=== PATIENT | female | born 1965 | race Caucasian/White ===

== ENCOUNTER → 2020-03-02 | Outpatient (CLI) | payer OTHER ==
[2020-03-02 11:10] LABS: Basophils # (A) 0.1 k/uL (0-0.2); Basophils % (A) 1 %; Eosinophils # (A) 0.4 k/uL (0-0.7); Eosinophils % (A) 5 %; HCT 49.4 % (34.0-46.0); HGB 15.8 gm/dL (11.4-16.0); Lymphocytes # (A) 1.3 k/uL (1.0-4.8); Lymphocytes % (A) 18 %; MCH 29.6 pg (25.0-35.0); MCHC 32.1 g/dL (31.0-37.0); MCV 92.2 fL (80.0-100.0); Mean Platelet Volume 8.8; Monocytes # (A) 0.3 k/uL (0-1.0); Monocytes % (A) 4 %; Neutrophils # (A) 5.2 k/uL (1.3-7.7); Neutrophils % (A) 70 %; Platelet Count 237 k/uL (150-450); RBC 5.36 m/uL (3.80-5.40); RDW 13.1 % (11.5-15.5); WBC 7.4 k/uL (3.8-10.6)
[2020-03-02 12:37] LABS: Total Eosinophil Count 370 #EOS/uL (150-300)
== END | disposition home or self-care (01) ==
LOC: LABWHC1 09:32
PROVIDERS: ATTEND Internal Medicine
DX: J30.2 Other seasonal allergic rhinitis (principal); J45.20 Mild intermittent asthma, uncomplicated; T78.49XA Other allergy, initial encounter
CPT/HCPCS: 36415; 82785; 85008; 85025

== ENCOUNTER 2020-05-02 10:01 | Observation (INO) | payer OTHER ==
[2020-05-02] MEDS ORDERED: SODIUM CHLORIDE 0.9% 1,000 ML IV STA (10:24)
[2020-05-02] MEDS ORDERED: ASPIRIN 81 MG PO STA (10:24)
[2020-05-02] MEDS ORDERED: NITROGLYCERIN SL TABS 0.4 MG TAB SUBLINGUAL STA (10:24)
--- NOTE | 2020-05-02 10:27 | ED ---
Chest Pain HPI - General Chief Complaint: Chest Pain Stated Complaint: Chest pain Time Seen by Provider: 05/02/20 10:10 Source: patient, RN notes reviewed Mode of arrival: wheelchair Limitations: no limitations - History of Present Illness Initial Comments: This is a 54-year-old female with a benign history other than obesity for which she states she last saw 15 pounds recently who presents with complaints of 2 episodes of chest pain. She states she had one episode with pain is been a 78/10 severity radiated into her back when away after an hour she had a second episode benign has some tingling in her right hand. Nothing seems to make it worse nothing seems to make it better currently she has 2/10 pain in severity. She describes it as a pressure or gas-type pain. He has no personal history of heart disease no known particular family history possibly heart disease in her dad's side also history hypertension. The patient herself is a nonsmoker. No history of any abdominal surgeries or any abdominal pathologies. MD Complaint: chest pain - Related Data Home Medications Medication Instructions Recorded Confirmed LORazepam [Ativan] 0.5 mg PO HS PRN 05/02/20 05/02/20 Multivitamins, Thera [Multivitamin 1 tab PO DAILY 05/02/20 05/02/20 (formulary)] [place]-3 Fatty Acids [[place]-3] 1,000 mg PO DAILY 05/02/20 05/02/20 Allergies Allergy/AdvReac Type Severity Reaction Status Date / Time fluticasone furoate Allergy Swelling Verified 05/02/20 10:41 [From Trelegy Ellipta] montelukast [From Singulair] Allergy Unknown Verified 05/02/20 10:41 umeclidinium Allergy Swelling Verified 05/02/20 10:41 [From Trelegy Ellipta] vilanterol Allergy Swelling Verified 05/02/20 10:41 [From Trelegy Ellipta] Review of Systems ROS Statement: Those systems with pertinent positive or pertinent negative responses have been documented in the HPI. ROS Other: All systems not noted in ROS Statement are negative. Past Medical History Past Medical History: Asthma History of Any Multi-Drug Resistant Organisms: None Reported Past Surgical History: Section, Cholecystectomy Past Psychological History: No Psychological Hx Reported Past Alcohol Use History: None Reported Past Drug Use History: None Reported General Exam - General Exam Comments Initial Comments: Physical well-developed well-nourished awake alert oriented 3 female Limitations: no limitations General appearance: alert, anxious Head exam: Present: atraumatic, normocephalic, normal inspection Eye exam: Present: normal appearance, PERRL, EOMI. Absent: scleral icterus, conjunctival injection, periorbital swelling ENT exam: Present: normal exam, mucous membranes moist Neck exam: Present: normal inspection. Absent: tenderness, meningismus, lymphadenopathy Respiratory exam: Present: normal lung sounds bilaterally. Absent: respiratory distress, wheezes, rales, rhonchi, stridor Cardiovascular Exam: Present: regular rate, normal rhythm, normal heart sounds. Absent: systolic murmur, diastolic murmur, rubs, gallop, clicks GI/Abdominal exam: Present: soft, normal bowel sounds. Absent: distended, tenderness, guarding, rebound, rigid Extremities exam: Present: normal inspection, full ROM, normal capillary refill. Absent: tenderness, pedal edema, joint swelling, calf tenderness Back exam: Present: normal inspection Neurological exam: Present: alert, oriented X3, CN II-XII intact Psychiatric exam: Present: normal affect, normal mood Skin exam: Present: warm, dry, intact, normal color. Absent: rash Course Vital Signs 05/02/20 05/02/20 05/02/20 10:05 10:40 11:10 Temperature 98.2 F Pulse Rate 96 85 97 Respiratory 18 10 L 26 H Rate Blood Pressure 161/84 134/87 138/82 O2 Sat by Pulse 93 L 95 91 L Oximetry Chest Pain MDM - MDM Review the imaging and report no acute findings. The patient is currently pain- free at this time the presentation is consistent however with chest pain related to cardiac etiology after discussed with her she'll be admitted with cardiology consultation the case was discussed with Dr. Bowen. Disposition Clinical Impression: Chest pain Disposition: ADMITTED IP TO THIS HOSP Condition: Fair Referrals: Merlin Patterson MD [Primary Care Provider] - 1-2 days
[2020-05-02 10:43] LABS: Basophils # (A) 0.1 k/uL (0-0.2); Basophils % (A) 1 %; Eosinophils # (A) 0.4 k/uL (0-0.7); Eosinophils % (A) 4 %; HCT 48.9 % (34.0-46.0); HGB 16.4 gm/dL (11.4-16.0); Lymphocytes # (A) 1.5 k/uL (1.0-4.8); Lymphocytes % (A) 16 %; MCH 30.7 pg (25.0-35.0); MCHC 33.7 g/dL (31.0-37.0); MCV 91.2 fL (80.0-100.0); Mean Platelet Volume 9.2; Monocytes # (A) 0.4 k/uL (0-1.0); Monocytes % (A) 4 %; Neutrophils # (A) 6.6 k/uL (1.3-7.7); Neutrophils % (A) 73 %; Platelet Count 221 k/uL (150-450); RBC 5.36 m/uL (3.80-5.40); RDW 12.8 % (11.5-15.5)
[2020-05-02 10:52] LABS: ALT 32 U/L (4-34); AST 31 U/L (14-36); African American GFR (CKD) >90 (>60 ml/min/1.73 sqM); Albumin 4.5 g/dL (3.5-5.0); Alkaline Phosphatase 77 U/L (38-126); Anion Gap 9 mmol/L; Blood Urea Nitrogen 12 mg/dL (7-17); Calcium 9.7 mg/dL (8.4-10.2); Carbon Dioxide 21 mmol/L (22-30); Chloride 110 mmol/L (98-107); Creatine Kinase 75 U/L (30-135); Glucose 126 mg/dL (74-99); Magnesium 2.3 mg/dL (1.6-2.3); Non-African American GFR(CKD) 82 (>60 ml/min/1.73 sqM); Potassium 4.5 mmol/L (3.5-5.1); Sodium 140 mmol/L (137-145); Total Protein 7.2 g/dL (6.3-8.2)
--- NOTE | 2020-05-02 10:53 | XR ---
EXAMINATION TYPE: XR chest 2V DATE OF EXAM: 05/02/2020 COMPARISON: None INDICATION: Chest pain TECHNIQUE: Frontal and lateral views of the chest are obtained. FINDINGS: The heart size is normal. The pulmonary vasculature is normal. The lungs are clear. IMPRESSION: 1. No acute pulmonary process.
[2020-05-02 11:11] LABS: INR 0.9 (<1.2)
[2020-05-02 11:12] LABS: D-Dimer 0.22 mg/L FEU (<0.60); Partial Thromboplastin Time 21.3 sec (22.0-30.0); Prothrombin Time 9.5 sec (9.0-12.0)
[2020-05-02] MEDS ORDERED: NITROGLYCERIN SL TABS 0.4 MG TAB SUBLINGUAL PRN (12:58)
[2020-05-02] MEDS ORDERED: SODIUM CHLORIDE 0.9% 1,000 ML IV SCH (13:00)
[2020-05-02] MEDS ORDERED: LORazepam 0.5 MG TAB PO PRN (13:02)
--- NOTE | 2020-05-03 01:03 | P.HPIM ---
History of Present Illness H&P Date: 05/02/20 Chief Complaint: Chest Pain Patient is a 54-year-old female with known history of asthma, anxiety and morbid obesity BMI 42.1 came to ER with the complaints of 2 episodes of chest pain. Second episode was on Thursday and radiating to the back and subsided. Today morning around 9:30 AM patient developed chest pain mainly left retrosternal region and radiating to the back. 8 x 10 in severity. Patient felt numbness and tingling sensation in the fingers. No associated nausea. No shortness of breath. Patient has been having dull pain since then. Patient denied any history of smoking. No family history of premature heart disease. No history of hypertension. Patient does have prior history of cholecystectomy. Patient was recently started on gluten-free diet. Laboratory data showed WBC 9.0, hemoglobin 16.4 and platelets 221 D-dimer is 0.22 Sodium 140, potassium 4.5, bicarb is 21 BUN 12 and creatinine 0.81 AST ALT alk phos within normal limits. Troponin x2- proBNP is 32 Lipase level is 106 Chest x-ray showed no acute pulmonary process. EKG showed normal sinus rhythm Review of Systems Constitutional: Patient denies any fever or chills . No generalized weakness or weight loss. Abdomen: Patient denied nausea vomiting and diarrhea and abdominal pain. Cardiovascular: Patient does have chest pain with no associated short of breath no palpitations. Respiratory: patient denied any cough is from production. No shortness of breath Neurologic: Patient denied any numbness or tingling headache. Musculoskeletal: Patient denies any complaints of joint swelling or deformity. Skin: Negative Psychiatric: Negative Endocrine: No heat or cold intolerance. No recent weight gain. Genitourinary: No dysuria or hematuria. All other 14 point ROS negative except the above Past Medical History Past Medical History: Asthma History of Any Multi-Drug Resistant Organisms: None Reported Past Surgical History: Section, Cholecystectomy Smoking Status: Never smoker Medications and Allergies Home Medications Medication Instructions Recorded Confirmed Type LORazepam [Ativan] 0.5 mg PO HS PRN 05/02/20 05/02/20 History Multivitamins, Thera [Multivitamin 1 tab PO DAILY 05/02/20 05/02/20 History (formulary)] [place]-3 Fatty Acids [[place]-3] 1,000 mg PO DAILY 05/02/20 05/02/20 History Allergies Allergy/AdvReac Type Severity Reaction Status Date / Time fluticasone furoate Allergy Swelling Verified 05/02/20 10:41 [From Trelegy Ellipta] montelukast [From Singulair] Allergy Unknown Verified 05/02/20 10:41 umeclidinium Allergy Swelling Verified 05/02/20 10:41 [From Trelegy Ellipta] vilanterol Allergy Swelling Verified 05/02/20 10:41 [From Trelegy Ellipta] Physical Exam Vitals: Vital Signs Temp Pulse Pulse Resp BP BP Pulse Ox 05/02/20 14:48 98.2 F 77 16 132/89 91 L 05/02/20 12:55 75 18 136/80 96 05/02/20 12:45 72 126/89 95 05/02/20 11:10 97 26 H 138/82 91 L 05/02/20 10:40 85 10 L 134/87 95 05/02/20 10:05 98.2 F 96 18 161/84 93 L Intake and Output 05/02/20 05/02/20 05/02/20 06:59 14:59 22:59 Other: Weight 104.326 kg PHYSICAL EXAMINATION: Patient is lying in the bed comfortably, no acute distress, awake alert and oriented.. HEENT: Normocephalic. Neck is supple. Pupils reactive. Nostrils clear. Oral cavity is moist. Ears reveal no drainage. Neck reveals no JVD, carotid bruits, or thyromegaly. CHEST EXAMINATION: Trachea is central. Symmetrical expansion. Lung martini clear to auscultation and percussion. CARDIAC: Normal S1, S2 with no gallops. No murmurs ABDOMEN: Soft. Bowel sounds normal. No organomegaly. No abdominal bruits. Extremities: reveal no edema. No clubbing or cyanosis Neurologically awake, alert, oriented x3 with well-coordinated movements. No focal deficits noted Skin: No rash or skin lesions. Psychiatric: Coperative. Nonsuicidal Musculoskeletal: No joint swelling or deformity. Normal range of motion. Results CBC & Chem 7: 05/02/20 10:34 05/02/20 10:34 Labs: Abnormal Lab Results - Last 24 Hours (Table) 05/02/20 05/02/20 05/02/20 Range/Units 10:34 10:34 10:34 Hgb 16.4 H (11.4-16.0) gm/dL Hct 48.9 H (34.0-46.0) % APTT 21.3 L (22.0-30.0) sec Chloride 110 H (98-107) mmol/L Carbon Dioxide 21 L (22-30) mmol/L Glucose 126 H (74-99) mg/dL Thrombosis Risk Factor Assmnt - DVT/VTE Prophylaxis DVT/VTE Prophylaxis: Pharmacologic Prophylaxis ordered - Choose All That Apply Each Factor Represents 1 point: Age 41-60 years Thrombosis Risk Factor Assessment Total Risk Factor Score: 1 Thrombosis Risk Factor Assessment Level: Low Risk Assessment and Plan Assessment: Atypical chest pain rule out ACS. Anxiety and stress History of asthma currently not in exacerbation Recent initiation of gluten-free diet Morbid obesity with BMI 42.1 DVT prophylaxis with heparin subcu Plan: Patient will be continued on telemetry monitoring. Initial EKG and troponin x2- . Continue with aspirin. Cardiology was consulted for evaluation. Continue to follow closely.
[2020-05-03 01:29] LABS: Cholesterol 203 mg/dL (<200); HDL Cholesterol 40 mg/dL (40-60); LDL Cholesterol,Calculated 137 mg/dL (0-99); Triglycerides 132 mg/dL (<150)
[2020-05-03 07:45] VITALS: RESP 18; TEMP 98
[2020-05-03] MEDS ORDERED: NON FORMULARY DRUG (Omega-3 Fatty Acids [Omega-3] 1,000 MG) PO SCH (09:00)
[2020-05-03] MEDS ORDERED: ASPIRIN 325 MG TAB PO SCH (09:00)
[2020-05-03] MEDS ORDERED: MULTIVITAMINS, THERA 1 EACH TAB PO SCH (09:00)
[2020-05-03] MEDS ORDERED: amLODIPine 5 MG TAB PO SCH (09:00)
--- NOTE | 2020-05-03 11:00 | ECHOF ---
Referral Reason: MEASUREMENTS -------- HEIGHT: 157.5 cm WEIGHT: 104.3 kg BP: IVSd: 1.2 cm (0.6 - 1.1) LVIDd: 4.1 cm (3.9 - 5.3) LVPWd: 1.2 cm (0.6 - 1.1) IVSs: 1.5 cm LVIDs: 3.1 cm LVPWs: 1.5 cm Ao Diam: 3.7 cm (2.0 - 3.7) AV Cusp: 1.9 cm (1.5 - 2.6) LA Diam: 2.7 cm (2.7 - 3.8) MV EXCURSION: 12.495 mm (> 18.000) MV EF SLOPE: 97 mm/s (70 - 150) EPSS: 1.8 cm MV E David: 0.74 m/s MV DecT: 144 ms MV A David: 0.67 m/s MV E/A Ratio: 1.10 RAP: 5.00 mmHg RVSP: 12.32 mmHg FINDINGS -------- Sinus rhythm. This was a technically difficult study with suboptimal views. The left ventricular size is normal. There is mild concentric left ventricular hypertrophy. Overa ll left ventricular systolic function is normal with, an EF between 55 - 60 %. The right ventricle is normal in size. The left atrial size is normal. The right atrial size is normal. xx ml of Lumason was utilized for enhancement of images. Unable to visualize atrial septum. The aortic valve is trileaflet and appears structurally normal. The mitral valve is normal. There is trace mitral regurgitation. The tricuspid valve appears structurally normal. Trace tricuspid regurgitation present. Right james tricular systolic pressure is normal at < 35 mmHg. There is no pulmonic regurgitation present. The aortic root size is normal. IVC Not well visulized. There is no pericardial effusion. CONCLUSIONS -------- 1. There is mild concentric left ventricular hypertrophy. 2. Overall left ventricular systolic function is normal with, an EF between 55 - 60 %. 3. There is trace mitral regurgitation. 4. Trace tricuspid regurgitation present. 5. The aortic root size is normal. [employer]ELTY: Magalie Mark RD
--- NOTE | 2020-05-03 11:01 | P.CRDCN ---
History of Present Illness History of present illness: HISTORY OF PRESENTING ILLNESS This is a pleasant 54-year-old female past medical history significant for asthma and obesity. She denies prior history of coronary artery disease and does not follow regularly with a inventory control assistant for any reason. We have been asked to see in consultation for chest pain. She states for the previous few weeks she has been experiencing pain in the mid-sternal region described as a burning sensation and tightness. At times there is radiation to the right hand described as a tingling sensation. She states she hasn't really been using her inhaler whe n this happens because she isn't sure if she needs it. She also has been under significant stress lately and takes ativan for this. The pain was more intense on Thursday prompting her to come in for evaluation. She continues to have constant pain in the mid sternal region and today feels an odd sensation in her throat. DIAGNOSTICS EKG reveals sinus mechanism with nonspecific abnormalities and early repolarization. Chest xray negative for an acute cardiopulmonary process. Laboratory reviewed, WBC 9.0, hemoglobin 16.4, platelets 221, d-dimer 0.22, sodium 140, potassium 4.5, creatinine 0.81, magnesium 1.0, cardiac enzymes negative 3, and she proBNP 32, LDL 137 and HDL 40. She takes no daily cardiac medications. REVIEW OF SYSTEMS At the time of my exam: CONSTITUTIONAL: Denies fever or chills. CARDIOVASCULAR: Complains of chest pain. Denies shortness of breath, orthopnea, PND or palpitations. RESPIRATORY: Denies cough. GASTROINTESTINAL: Denies abdominal pain, diarrhea, constipation, nausea or vomiting. MUSCULOSKELETAL: Denies myalgias. NEUROLOGIC: Denies numbness, tingling or weakness. ENDOCRINE: Denies fatigue, weight change, polydipsia or polyurina. GENITOURINARY: Denies burning, hematuria or urgency with micturation. HEMATOLOGIC: Denies history of anemia or bleeding. PHYSICAL EXAMINATION Blood pressure 161/91 heart rate 74 afebrile and maintaining oxygen saturation on room air. CONSTITUTIONAL: No apparent distress. Obese. HEENT: Head is normocephalic. Pupils are equal, round. Sclerae anicteric. Mucous membranes of the mouth are moist. No JVD. No carotid bruit. CHEST EXAMINATION: Lungs are clear to auscultation. No chest wall tenderness is noted on palpation or with deep breathing. HEART EXAMINATION: Regular rate and rhythm. S1, S2 heard. No murmurs, gallops or rub. ABDOMEN: Soft, nontender. Positive bowel sounds. EXTREMITIES: 2+ peripheral pulses, no lower extremity edema and no calf tenderness. NEUROLOGIC EXAMINATION: Patient is awake, alert and oriented x3. ASSESSMENT Chest pain, atypical for angina. An acute coronary event has been ruled out. Hypertension Dyslipidemia Asthma Morbid obesity, BMI 42 PLAN Pain is atypical for angina. However, given her risk factor profile we will proceed with stress echocardiogram to assess for stress induced ischemia. Obtain 2D echocardiogram and doppler study to assess cardiac structure and function. Give amloidpine 5 mg before stress testing for elevated blood pressure. This may also be a stress reaction as she states her blood pressures are typically normal when she sees her dr. Recommend lifestyle modifications for weight loss and lowering of LDL cholesterol to less than 100. If stress test is normal, suggest further GI evaluation and daily PPI. Thank you kindly for this consultation. Nurse Practitioner note has been reviewed, I agree with a documented findings and plan of care. Patient was seen and examined. Past Medical History Past Medical History: Asthma History of Any Multi-Drug Resistant Organisms: None Reported Past Surgical History: Section, Cholecystectomy Smoking Status: Never smoker Medications and Allergies Home Medications Medication Instructions Recorded Confirmed Type LORazepam [Ativan] 0.5 mg PO HS PRN 05/02/20 05/02/20 History Multivitamins, Thera [Multivitamin 1 tab PO DAILY 05/02/20 05/02/20 History (formulary)] [place]-3 Fatty Acids [[place]-3] 1,000 mg PO DAILY 05/02/20 05/02/20 History Allergies Allergy/AdvReac Type Severity Reaction Status Date / Time fluticasone furoate Allergy Swelling Verified 05/02/20 10:41 [From Trelegy Ellipta] montelukast [From Singulair] Allergy Unknown Verified 05/02/20 10:41 umeclidinium Allergy Swelling Verified 05/02/20 10:41 [From Trelegy Ellipta] vilanterol Allergy Swelling Verified 05/02/20 10:41 [From Trelegy Ellipta] Physical Exam Vitals: Vital Signs Temp Pulse Pulse Resp BP BP Pulse Ox 05/03/20 08:03 74 18 05/03/20 07:40 98 F 74 18 161/91 97 05/03/20 03:00 97.8 F 82 16 145/82 95 05/02/20 21:00 97.9 F 72 16 154/94 100 05/02/20 14:48 98.2 F 77 16 132/89 91 L 05/02/20 12:55 75 18 136/80 96 05/02/20 12:45 72 126/89 95 05/02/20 11:10 97 26 H 138/82 91 L Intake and Output 05/02/20 05/03/20 05/03/20 22:59 06:59 14:59 Intake Total 450 0 0 Balance 450 0 0 Intake: Oral 450 0 0 Other: Voiding Method Toilet Toilet Toilet # Voids 1 2 Results 05/02/20 10:34 05/02/20 10:34 Cardiac Enzymes 05/02/20 05/02/20 05/02/20 Range/Units 10:34 10:34 13:37 AST 31 (14-36) U/L Troponin I <0.012 <0.012 (0.000-0.034) ng/mL 05/02/20 Range/Units 16:26 AST (14-36) U/L Troponin I <0.012 (0.000-0.034) ng/mL Coagulation 05/02/20 Range/Units 10:34 PT 9.5 (9.0-12.0) sec APTT 21.3 L (22.0-30.0) sec Lipids 05/02/20 Range/Units 10:34 Triglycerides 132 (<150) mg/dL Cholesterol 203 H (<200) mg/dL HDL Cholesterol 40 (40-60) mg/dL Comprehensive Metabolic Panel 05/02/20 Range/Units 10:34 Sodium 140 (137-145) mmol/L Potassium 4.5 (3.5-5.1) mmol/L Chloride 110 H (98-107) mmol/L Carbon Dioxide 21 L (22-30) mmol/L BUN 12 (7-17) mg/dL Creatinine 0.81 (0.52-1.04) mg/dL Glucose 126 H (74-99) mg/dL Calcium 9.7 (8.4-10.2) mg/dL AST 31 (14-36) U/L ALT 32 (4-34) U/L Alkaline Phosphatase 77 (38-126) U/L Total Protein 7.2 (6.3-8.2) g/dL Albumin 4.5 (3.5-5.0) g/dL Current Medications Generic Name Dose Route Start Last Admin Trade Name Freq PRN Reason Stop Dose Admin Amlodipine Besylate 5 mg 05/03/20 09:00 05/03/20 09:15 Norvasc PO 5 mg DAILY JUDSON Administration Aspirin 81 mg 05/04/20 09:00 Aspirin PO DAILY JUDSON Sodium Chloride 1,000 mls @ 20 mls/hr 05/02/20 13:00 05/02/20 15:04 Saline 0.9% IV 20 mls/hr .Q24H JUDSON Administration Lorazepam 0.5 mg 05/02/20 13:02 Ativan PO HS PRN Anxiety Multivitamins 1 each 05/03/20 09:00 05/03/20 08:24 Theragran PO 1 each DAILY JUDSON Administration Nitroglycerin 0.4 mg 05/02/20 12:58 Nitrostat SUBLINGUAL Q5M PRN Chest Pain Intake and Output 05/02/20 05/03/20 05/03/20 22:59 06:59 14:59 Intake Total 450 0 0 Balance 450 0 0 Intake: Oral 450 0 0 Other: Voiding Method Toilet Toilet Toilet # Voids 1 2 05/02/20 10:34 05/02/20 10:34
[2020-05-03] MEDS ORDERED: PANTOPRAZOLE 40 MG TABLET PO SCH (11:45)
[2020-05-03 14:18] VITALS: BP 127/95; PULSE 91
--- NOTE | 2020-05-03 14:42 | ECHOS ---
STRESS ECHOCARDIOGRAM LUMASON: 1 Vial INDICATIONS: Chest pain. MEDICATIONS: BASELINE HEART RATE: 86 BASELINE BLOOD PRESSURE: 149/87 MAXIMUM HEART RATE: 152 MAXIMUM BLOOD PRESSURE: 186/72 85% MPHR: 139 100% MPHR: 164 METS: 7.1 MAXIMUM STAGE REACHED: 2 TOTAL EXERCISE TIME: 5:15 DATE OF SERVICE: 05/03/2020 Baseline EKG revealed normal sinus rhythm without significant ST-T changes. Patient walked on standard D[place] protocol for 5 minutes 15 seconds, achieved a maximal heart rate of 152 beats per minute which is well above 85% of predicted maximal. She developed fatigue and shortness of breath but did not have any angina or arrhythmia. She had some isolated PVCs. Occasional couplet. Upsloping nonspecific ST-segment changes were noted. There was some baseline artifact. No clear-cut evidence to suggest any ischemia. However, the quality of EKG tracings were suboptimal. By EKG criteria, this is a negative stress test with limited exercise capacity. Baseline echo images revealed normal wall motion and wall thickening of all segments. The quality of the echo was somewhat suboptimal and therefore echo contrast was administered to optimize the quality of images. At peak exercise, there was good augmentation of left ventricular wall motion and wall thickening of all segments suggesting that there is no evidence of any stress-induced ischemia on this study. IMPRESSION: 1. Limited exercise capacity with a negative stress test by EKG criteria. 2. Normal stress echocardiogram without evidence of ischemia. DIEGO / REBECAN: [id number] /
--- NOTE | 2020-05-03 16:24 | P.DS ---
Providers Date of admission: 05/02/20 12:59 Expected date of discharge: 05/03/20 Attending physician: John Bowen Consults: 05/02/20 12:59 Consult Physician Urgent Consulting Provider: Carlyle Sykes Consult Reason/Comments: Chest pain Do you want consulting provider notified?: Yes Primary care physician: Yesenia Cortez [facility] Course: Final diagnosis Atypical chest pain ruled out ACS. Anxiety and stress History of asthma currently not in exacerbation Possible gastroesophageal reflux disease Recent initiation of gluten-free diet Morbid obesity with BMI 42.1 DVT prophylaxis Discharge disposition Patient is being discharged in a stable condition with guarded prognosis to home. Patient will follow-up with Dr. Patterson in the outpatient setting upon discharge. Patient will also follow-up with cardiology in the outpatient setting as discussed and scheduled. Patient will continue on a low-dose aspirin along with Norvasc and Protonix. Total time taken is greater than 35 minutes. History of present illness This is a 54-year-old female who was recently admitted with intermittent reactive chest pain that had started on the weekend with radiating to the back and a repeat episode of the same along with some numbness and tingling sensation in the finger and was being closely monitored. Serial troponins were negative. D-dimer was negative. CBC and BMP within normal limits. Chest x-ray showed no acute pulmonary process. ECG normal sinus rhythm. She was seen and evaluated by cardiology and recommended undergoing stress test which was negative. Asher alvarado will be continued on low-dose aspirin along with Protonix. She was initiated on Norvasc 5 mg and will continue in the outpatient setting. Patient instructed to keep a close eye and monitor blood pressures daily and keep a diary of readings for primary care follow-up. Patient has been undergoing a lot of stress and anxiety lately and feels this is the cause of her symptoms. Patient will follow-up with cardiology in the outpatient setting as discussed and scheduled. Patient will also continue on Protonix 40 mg daily for the next month and instructed to follow-up with gastroenterology if symptoms persist or worsen. Patient verbalized understanding of this treatment plan and agrees with this plan. Currently no reports of chest pain, shortness of breath, or palpitations. Patient is afebrile. No reports of nausea or vomiting and patient is tolerating diet. Patient will be discharged today. On exam vital signs are stable. Temp is 98.0F, pulse is 91, respirations are 18, blood pressure is 127/95, oxygen saturation is 98% on room air. Cardio S1, S2 are muffled. Respiratory system shows diminished breath sounds at the bases with no wheezing or rhonchi noted. Abdomen is soft and obese, and nontender. Nervous system shows no focal deficits. Please refer to medication reconciliation sheet for a list of medications. Patient Condition at Discharge: Stable Plan - Discharge Summary Discharge Rx Participant: No New Discharge Prescriptions: New Aspirin 81 mg PO DAILY 30 Days #30 chew amLODIPine [Norvasc] 5 mg PO DAILY 30 Days #30 tab Pantoprazole [Protonix] 40 mg PO AC-BRKFST 30 Days #30 tablet. Continue Multivitamins, Thera [Multivitamin (formulary)] 1 tab PO DAILY [place]-3 Fatty Acids [[place]-3] 1,000 mg PO DAILY LORazepam [Ativan] 0.5 mg PO HS PRN PRN Reason: Anxiety Discharge Medication List LORazepam [Ativan] 0.5 mg PO HS PRN 05/02/20 [History] Multivitamins, Thera [Multivitamin (formulary)] 1 tab PO DAILY 05/02/20 [History] [place]-3 Fatty Acids [[place]-3] 1,000 mg PO DAILY 05/02/20 [History] Aspirin 81 mg PO DAILY 30 Days #30 chew 05/03/20 [Rx] Pantoprazole [Protonix] 40 mg PO AC-BRKFST 30 Days #30 tablet. 05/03/20 [Rx] amLODIPine [Norvasc] 5 mg PO DAILY 30 Days #30 tab 05/03/20 [Rx] Follow up Appointment(s)/Referral(s): Waleska Gudino MD [STAFF PHYSICIAN] - 05/21/20 8:45 am Merlin Patterson MD [Primary Care Provider] - 05/09/20 2:20 pm Patient Instructions/Handouts: Chest Pain (GEN), Gastroesophageal Reflux Disease (GEN), Hypertension (GEN) Activity/Diet/Wound Care/Special Instructions: Activity Limited until follow-up Follow-up with primary care provider upon discharge Continue current diet Continue with Protonix daily Continue with amlodipine 5 mg and monitor blood pressures and keep a diary of daily readings for primary care follow-up May need outpatient GI follow-up if symptoms continue Discharge Disposition: HOME SELF-CARE
[2020-05-04] MEDS ORDERED: ASPIRIN 81 MG PO SCH (09:00)
== END 2020-05-03 14:52 | disposition home or self-care (01) ==
LOC: EC 10:01 → 3NCARDOBS 12:59
PROVIDERS: ADMIT Internal Medicine; ATTEND Internal Medicine
DX: R07.89 Other chest pain (principal); F41.9 Anxiety disorder, unspecified; F43.9 Reaction to severe stress, unspecified; I10 Essential (primary) hypertension; E78.5 Hyperlipidemia, unspecified; J45.909 Unspecified asthma, uncomplicated; R20.2 Paresthesia of skin; R20.0 Anesthesia of skin; E66.01 Morbid (severe) obesity due to excess calories; Z68.41 Body mass index [BMI] 40.0-44.9, adult; Z79.899 Other long term (current) drug therapy; I25.2 Old myocardial infarction; Z88.8 Allergy status to other drugs, medicaments and biological substances; Z90.49 Acquired absence of other specified parts of digestive tract; Z98.891 History of uterine scar from previous surgery; Z20.828 Contact with and (suspected) exposure to other viral communicable diseases
CPT/HCPCS: 93005 ×2; 96360; 96361; 99285; 36415; 93306; 93351; 85379; 83880; 80061; 80053; 82550; 83690; 83735; 84484; 85025; 85610; 85730; 71046; G0378 ×2; U0003; Q9950

== ENCOUNTER 2023-03-02 20:25 | Emergency (ER) | payer BC, OTHER ==
--- NOTE | 2023-03-02 21:35 | XR ---
EXAMINATION TYPE: XR chest 2V DATE OF EXAM: 03/02/2023 9:17 PM COMPARISON: Chest radiographs from 05/02/2020 TECHNIQUE: XR chest 2V Frontal and lateral views of the chest. CLINICAL INDICATION:Female, 57 years old with history of Chest Pain; FINDINGS: Lungs/Pleura: Prominent interstitial lung markings are seen scattered throughout the lungs. No eviden ce of focal consolidation, pneumothorax or pleural effusion. Pulmonary vascularity: Unremarkable. Heart/mediastinum: Cardiomediastinal silhouette is unremarkable. Musculoskeletal: No acute osseous pathology. IMPRESSION: No acute cardiopulmonary disease/process.
--- NOTE | 2023-03-02 21:53 | ED ---
Chest Pain HPI - General Chief Complaint: Chest Pain Stated Complaint: CHEST PAIN Time Seen by Provider: 03/02/23 20:50 Source: patient, RN notes reviewed Mode of arrival: ambulatory Limitations: no limitations - History of Present Illness Initial Comments: Patient is a 57-year-old female presenting to the emergency room with chest pain ongoing intermittently over the last several days. She reports the pain is heaviness/ pressure like sensation without pin point origin. She denies any know aggravating factors but reports the pain did improve after use of her previously prescribed Ativan. She reports increased stress levels recently. She denies any chest pain at this time but presented to the emergency room today due to developing left arm pain today. She reports the pain is aching like sensation that is low in intensity located in the upper arm region without any radiation into the shoulder or down into the forearm. She states that the pain is worse with movement of her left arm and reports it began after doing significant amount of yard work earlier in the day today. She denies any shortness of breath, palpitations, orthopnea, headache, dizziness, abdominal pain, nausea, vomiting, fevers or chills. .She denies any significant family history of CAD under the age of 55. Besides her history of anxiety her only other past medical history is for asthma that she is not currently on any inhalers for and denies any recent exacerbations. - Related Data Home Medications Medication Instructions Recorded Confirmed LORazepam [Ativan] 0.5 mg PO DIRECTED PRN 03/02/23 03/02/23 [place]-3 Fatty Acids [[place]-3] 1,000 mg PO DAILY 03/02/23 03/02/23 Allergies Allergy/AdvReac Type Severity Reaction Status Date / Time fluticasone furoate Allergy Swelling Verified 03/02/23 21:59 [From Trelegy Ellipta] montelukast [From Singulair] Allergy Unknown Verified 03/02/23 21:59 umeclidinium Allergy Swelling Verified 03/02/23 21:59 [From Trelegy Ellipta] vilanterol Allergy Swelling Verified 03/02/23 21:59 [From Trelegy Ellipta] Review of Systems ROS Statement: Those systems with pertinent positive or pertinent negative responses have been documented in the HPI. ROS Other: All systems not noted in ROS Statement are negative. Past Medical History Past Medical History: Asthma History of Any Multi-Drug Resistant Organisms: None Reported Past Surgical History: Section, Cholecystectomy Past Psychological History: Anxiety Smoking Status: Never smoker Past Alcohol Use History: Occasional Past Drug Use History: None Reported General Exam - General Exam Comments Initial Comments: GENERAL: No acute distress, well developed, well nourished. Obese. HEENT: Normocephalic, atraumatic. Pupils equal, round, reactive to light. Moist mucous membranes. LUNGS: No respiratory distress. Clear to auscultation, no adventitious sounds, no use of accessory muscles. HEART: Regular rate and rhythm without murmur, rub, or gallop. ABDOMEN: Normal bowel sounds. Soft, non-tender, non-distended. BACK: Normal inspection. EXTREMITIES: No edema. Moves all extremities. No point tenderness LUE. NEUROLOGIC: Alert & oriented x 3. CN II-XII grossly intact. PSYCHIATRIC: Normal affect and behavior. DERMATOLOGIC: Skin intact, without rashes or lesions noted. Limitations: no limitations Course Vital Signs 03/02/23 03/02/23 03/02/23 20:43 22:05 23:00 Temperature 98.3 F 98.1 F Pulse Rate 87 80 Pulse Rate [ 82 Livestock Feeder ] Respiratory 18 17 Rate Blood Pressure 177/113 158/80 O2 Sat by Pulse 98 98 Oximetry 03/03/23 00:09 Temperature 98.2 F Pulse Rate 77 Pulse Rate [ Livestock Feeder ] Respiratory 18 Rate Blood Pressure 160/82 O2 Sat by Pulse 97 Oximetry Chest Pain MDM - MDM Was pt. sent in by a medical professional or institution (, PA, [employer], urgent care, hospital, or [facility]...) When possible be specific @ -No Did you speak to anyone other than the patient for history (EMS, parent, family, police, friend...)? What history was obtained from this source @ -No Did you review nursing and triage notes (agree or disagree)? Why? @ -I reviewed and agree with nursing and triage notes Were old charts reviewed (outside hosp., previous admission, EMS record, old EKG, old radiological studies, urgent care reports/EKG's, [facility] records)? Report findings @ -No old charts were reviewed Differential Diagnosis (chest pain, altered mental status, abdominal pain women, abdominal pain men, vaginal bleeding, weakness, fever, dyspnea, syncope, headache, dizziness, GI bleed, back pain, seizure, CVA, palpatations, mental health, musculoskeletal)? @ -not applicable EKG interpreted by me (3pts min.). @ -Sinus rhythm, ventricular rate 86 bpm, [place] interval 150 ms, QRS duration 105 ms, QT/QTC 333/376 most seconds, PRT axes 48, 2, 32 X-rays interpreted by me (1pt min.). @ -Chest x-ray two-view: No acute cardiopulmonary process, no consolidation, infiltration, pneumothorax or pleural effusion. CT interpreted by me (1pt min.). @ -None done U/S interpreted by me (1pt. min.). @ -None done What testing was considered but not performed or refused? (CT, X-rays, U/S, labs)? Why? @ -None What meds were considered but not given or refused? Why? @ -None Did you discuss the management of the patient with other professionals (professionals i.e. , PA, [employer], lab, RT, psych nurse, community mental health social worker, adjunct professor of english, teacher, assignment officer, wrapper caser)? Give summary @ -No Was smoking cessation discussed for >3mins.? @ -No Was critical care preformed (if so, how long)? @ -No Were there social determinants of health that impacted care today? How? (Homelessness, low income, unemployed, alcoholism, drug addiction, transportation, low edu. Level, literacy, decrease access to med. care, [facility], rehab)? @ -No Was there de-escalation of care discussed even if they declined (Discuss DNR or withdrawal of care, Hospice)? DNR status @ -No What co-morbidities impacted this encounter? (DM, HTN, Smoking, COPD, CAD, Cancer, CVA, ARF, Chemo, Hep., AIDS, mental health diagnosis, sleep apnea, morbid obesity)? @ -None Was patient admitted / discharged? Hospital course, mention meds given and route, prescriptions, significant lab abnormalities, going to OR and other pertinent info. @ -57-year-old female presenting to the emergency room with atypical chest pain ongoing intermittently over the last several days with associated left arm pain worse with movement of her left arm after doing significant amount of yard work earlier in the day today. She denies any other associated symptoms. Her cardiovascular risk factors are low with no significant family history of CAD under the age of 55 she is a nonsmoker with no diabetic or hypertensive history. She denies any chest pain or shortness of breath at this time. Due to obesity and age will proceed with chest pain workup with EKG, chest x-ray, CBC, CMP, coags, troponin, and magnesium. In the absence of chest pain and dyspnea no indication for supplemental oxygen, nitroglycerin or aspirin at this time. Chest x-ray demonstrates no acute cardio pulmonary process. EKG shows sinus rhythm.Laboratory study results include a CBC with elevated hemoglobin 16.3 and elevated hematocrit 48.7. Normal coags. CMP with normal electrolytes. BUN elevated 19 with normal creatinine glucose elevated at 112. Troponin negative, magnesium and potassium normal. Findings discussed with patient at length. Advised patient with atypical chest pain not present on exam without any associated factors and limited cardiovascular factors. Advise no indication for further observation at this time but strict return parameters to the emergency room discussed. Patient is agreeable to this plan. Patient reports that she believes that her symptoms were related more to stress and she will continue utilizing her Ativan that she has available to her to help with her high anxiety levels. All questions and concerns answered. As stated above return progress to the emergency room discussed. Will discharge home in stable condition with continued use of Ativan for anxiety and monitoring of atypical chest pain advising follow-up with primary care provider. Undiagnosed new problem with uncertain prognosis? @ -No Drug Therapy requiring intensive monitoring for toxicity (Heparin, Nitro, Insulin, Cardizem)? @ -No Were any procedures done? @ -No Diagnosis/symptom? @ -Atypical chest pain Acute, or Chronic, or Acute on Chronic? @ -Acute Uncomplicated (without systemic symptoms) or Complicated (systemic symptoms)? @ -Uncomplicated Side effects of treatment? @ -No Exacerbation, Progression, or Severe Exacerbation? @ -No Poses a threat to life or bodily function? How? (Chest pain, [place], [place], pneumonia, PE, COPD, DKA, ARF, appy, cholecystitis, CVA, Diverticulitis, Homicidal, Suicidal, threat to staff... and all critical care pts) @ -No. Case discussed with Dr. Laboy. Disposition Clinical Impression: Atypical chest pain, Muscle strain of left upper arm Disposition: HOME SELF-CARE Condition: Stable Instructions (If sedation given, give patient instructions): Chest Pain (ED), Stress (ED), Arthralgia (ED) Additional Instructions: Please utilize [id number] Motrin or Tylenol as needed for left arm strain/pain. Continue to utilize your already prescribed Ativan for high anxiety levels as needed. Please follow-up with your primary care provider. Please return to the Emergency Department if symptoms worsen or any other concerns. Is patient prescribed a controlled substance at d/c from ED?: No Referrals: Merlin Patterson MD [Primary Care Provider] - 1-2 days Time of Disposition: 22:59
[2023-03-02 22:04] LABS: Basophils # (A) 0.1 k/uL (0-0.2); Basophils % (A) 1 %; Eosinophils # (A) 0.4 k/uL (0-0.7); Eosinophils % (A) 5 %; HCT 48.7 % (34.0-46.0); HGB 16.3 gm/dL (11.4-16.0); Lymphocytes # (A) 1.8 k/uL (1.0-4.8); Lymphocytes % (A) 22 %; MCH 30.1 pg (25.0-35.0); MCHC 33.4 g/dL (31.0-37.0); MCV 90.1 fL (80.0-100.0); Mean Platelet Volume 8.4; Monocytes # (A) 0.5 k/uL (0-1.0); Monocytes % (A) 5 %; Neutrophils # (A) 5.5 k/uL (1.3-7.7); Neutrophils % (A) 65 %; Platelet Count 243 k/uL (150-450); RBC 5.41 m/uL (3.80-5.40); RDW 12.8 % (11.5-15.5); WBC 8.5 k/uL (3.8-10.6)
[2023-03-02 22:14] LABS: ALT 25 U/L (4-34); AST 26 U/L (14-36); African American GFR (CKD) >90 (>60 ml/min/1.73 sqM); Albumin 4.5 g/dL (3.5-5.0); Alkaline Phosphatase 79 U/L (38-126); Anion Gap 10 mmol/L; Blood Urea Nitrogen 19 mg/dL (7-17); Calcium 9.5 mg/dL (8.4-10.2); Carbon Dioxide 23 mmol/L (22-30); Chloride 107 mmol/L (98-107); Glucose 112 mg/dL (74-99); INR 0.9 (<1.2); Magnesium 2.3 mg/dL (1.6-2.3); Non-African American GFR(CKD) 88 (>60 ml/min/1.73 sqM); Partial Thromboplastin Time 23.6 sec (22.0-30.0); Potassium 4.5 mmol/L (3.5-5.1); Prothrombin Time 9.4 sec (9.0-12.0); Sodium 140 mmol/L (137-145); Total Bilirubin 0.7 mg/dL (0.2-1.3); Total Protein 7.4 g/dL (6.3-8.2)
[2023-03-03 00:12] VITALS: BP 160/82; PULSE 77; RESP 18; TEMP 98.2
== END 2023-03-03 00:09 | disposition home or self-care (01) ==
LOC: EC 20:25
DX: S46.912A Strain of unspecified muscle, fascia and tendon at shoulder and upper arm level, left arm, initial encounter (principal); R07.89 Other chest pain; J45.909 Unspecified asthma, uncomplicated; F41.9 Anxiety disorder, unspecified; Z88.6 Allergy status to analgesic agent; Z88.8 Allergy status to other drugs, medicaments and biological substances; Z79.899 Other long term (current) drug therapy
CPT/HCPCS: 36415; 71046; 80053; 83735; 84484; 85025; 85610; 85730; 93005; 99285

== ENCOUNTER 2024-06-27 10:27 | Emergency (ER) | payer OTHER ==
[2024-06-27 10:53] VITALS: TEMP 98
[2024-06-27 11:30] LABS: Basophils # (A) 0.1 k/uL (0-0.2); Basophils % (A) 1 %; Eosinophils # (A) 0.3 k/uL (0-0.7); Eosinophils % (A) 4 %; HCT 52.5 % (34.0-46.0); HGB 17.1 gm/dL (11.4-16.0); Lymphocytes # (A) 1.6 k/uL (1.0-4.8); Lymphocytes % (A) 22 %; MCH 30.3 pg (25.0-35.0); MCHC 32.5 g/dL (31.0-37.0); MCV 93.3 fL (80.0-100.0); Mean Platelet Volume 9.2; Monocytes # (A) 0.3 k/uL (0-1.0); Monocytes % (A) 4 %; Neutrophils # (A) 5.1 k/uL (1.3-7.7); Neutrophils % (A) 68 %; Platelet Count 124 k/uL (150-450); RBC 5.62 m/uL (3.80-5.40); RDW 12.9 % (11.5-15.5); WBC 7.4 k/uL (3.8-10.6)
[2024-06-27 11:39] LABS: ALT 27 U/L (4-34); African American GFR (CKD) >90 (>60 ml/min/1.73 sqM); Anion Gap 9 mmol/L; Blood Urea Nitrogen 18 mg/dL (7-17); Calcium 10.4 mg/dL (8.4-10.2); Carbon Dioxide 23 mmol/L (22-30); Chloride 109 mmol/L (98-107); Glucose 111 mg/dL (74-99); Non-African American GFR(CKD) 80 (>60 ml/min/1.73 sqM); Sodium 141 mmol/L (137-145); Total Bilirubin 1.1 mg/dL (0.2-1.3); Total Protein 7.9 g/dL (6.3-8.2)
[2024-06-27 11:42] LABS: AST 29 U/L (14-36); Magnesium 2.1 mg/dL (1.6-2.3); Potassium 4.5 mmol/L (3.5-5.1)
[2024-06-27 11:43] LABS: Alkaline Phosphatase 77 U/L (38-126)
--- NOTE | 2024-06-27 12:01 | XR ---
EXAMINATION TYPE: XR chest 2V DATE OF EXAM: 06/27/2024 COMPARISON: 03/02/2023 INDICATION: Chest pain aspiration TECHNIQUE: Frontal and lateral views of the chest are obtained. FINDINGS: The heart size is normal. The pulmonary vasculature is normal. The lungs are clear. IMPRESSION: 1. No acute pulmonary process. [facility], , 06/27/2024 11:58 AM
--- NOTE | 2024-06-27 12:38 | ED ---
Chest Pain HPI - General Source: patient, RN notes reviewed Mode of arrival: ambulatory Limitations: no limitations <Denny Gerber - Last Filed: 06/27/24 12:37> <Favian Lozada - Last Filed: 06/27/24 15:25> - General Chief Complaint: Chest Pain Stated Complaint: chest pain Time Seen by Provider: 06/27/24 12:37 - History of Present Illness Initial Comments: 58-year-old female presented to ER with a chief complaint of chest pain. Patient states around 915 this morning she started to experience left-sided ches t pain with radiation to her collarbone. She did state pain was worse with deep breathing. No history of heart issues or MIs. She does report symptoms have since resolved for the past hour. Denies any dizziness, lightheadedness, shortness of breath, nausea or vomiting during pain. No physical activity out of the norm. (Denny Gerber) Dictation was produced using [employer] dictation software. please excuse any grammatical, word or spelling errors. Chief Complaint: 58-year-old female with no significant comorbidities presents to the ER for chest pain History of Present Illness: Patient 58-year-old female presents emergency department for chest pain. Patient states she had approximately 45 minutes to an hour of sharp chest pain worse with deep inspiration. Patient states that her symptoms are resolved. Patient was concerned. No associated diaphoresis or nausea. She does have family history of cardiac disease in her immediate family. Patient asymptomatic at the bedside. The ROS documented in this emergency department record has been reviewed and confirmed by me. Those systems with pertinent positive or negative responses have been documented in the HPI. All other systems are other negative and/or noncontributory. (Favian Lozada) - Related Data Home Medications Medication Instructions Recorded Confirmed LORazepam [Ativan] 0.5 mg PO DIRECTED PRN 03/02/23 03/02/23 Bronson-3 Fatty Acids [Bronson-3] 1,000 mg PO DAILY 03/02/23 03/02/23 Allergies Allergy/AdvReac Type Severity Reaction Status Date / Time fluticasone furoate Allergy Swelling Verified 03/02/23 21:59 [From Trelegy Ellipta] montelukast [From Singulair] Allergy Unknown Verified 03/02/23 21:59 umeclidinium Allergy Swelling Verified 03/02/23 21:59 [From Trelegy Ellipta] vilanterol Allergy Swelling Verified 03/02/23 21:59 [From Trelegy Ellipta] Review of Systems ROS Other: All systems not noted in ROS Statement are negative. <Denny Gerber - Last Filed: 06/27/24 12:37> ROS Other: All systems not noted in ROS Statement are negative. <Favian Lozada - Last Filed: 06/27/24 15:25> ROS Statement: Those systems with pertinent positive or pertinent negative responses have been documented in the HPI. Past Medical History Past Medical History: Asthma History of Any Multi-Drug Resistant Organisms: None Reported Past Surgical History: Section, Cholecystectomy Past Psychological History: Anxiety Smoking Status: Never smoker Past Alcohol Use History: Occasional Past Drug Use History: None Reported <Denny Gerber - Last Filed: 06/27/24 12:37> General Exam Limitations: no limitations <Denny Gerber - Last Filed: 06/27/24 12:37> <Favian Lozada - Last Filed: 06/27/24 15:25> - General Exam Comments Initial Comments: Visual Physical Exam Vital signs reviewed General: Well-appearing, nontoxic, no acute distress. Head: Normocephalic, atraumatic Eyes: PERRLA, EOMI ENT: Airway patent Chest: Nonlabored breathing Skin: No visual rash, normal skin tone Neuro: Alert and oriented 3 Musculoskeletal: No gross abnormalities (Denny Gerber) PHYSICAL EXAM: General Impression: Alert and oriented x3, not in acute distress HEENT: Normocephalic atraumatic, extra-ocular movements intact, pupils equal and reactive to light bilaterally, mucous membranes moist. Cardiovascular: Heart regular rate and rhythm Chest: Able to complete full sentences, no retractions, no tachypnea Abdomen: abdomen soft, non-tender, non-distended, no organomegaly Musculoskeletal: Pulses present and equal in all extremities, no peripheral edema Motor: no focal deficits noted Neurological: CN II-XII grossly intact, no focal motor or sensory deficits noted Skin: Intact with no visualized rashes Psych: Normal affect and mood (Favian Lozada) Course Vital Signs 06/27/24 06/27/24 10:49 13:19 Temperature 98 F Pulse Rate 2 L 82 Respiratory 18 Rate Blood Pressure 201/107 O2 Sat by Pulse 98 Oximetry Chest Pain MDM <Denny Gerber - Last Filed: 06/27/24 12:37> <Favian Lozada - Last Filed: 06/27/24 15:25> - [facility] I performed the quick note portion of this chart. Electronically signed by Denny Gerber PA-C (Denny Gerber) My EKG interpretation: Ventricular rate 80, sinus rhythm,. 146, QRS 110, QTc 374. No SD prolongation, no QTC prolongation, no ST or T-wave changes noted. Overall, this EKG is unremarkable Was pt. sent in by a medical professional or institution ([facility], [facility], urgent care, hospital, or snf...) When possible be specific @ -No Did you speak to anyone other than the patient for history (EMS, parent, family, police, friend...)? What history was obtained from this source @ -No Did you review nursing and triage notes (agree or disagree)? Why? @ -I reviewed and agree with nursing and triage notes Were old charts reviewed (outside hosp., previous admission, EMS record, old EKG, old radiological studies, urgent care reports/EKG's, snf records)? Report findings @ -No old charts were reviewed Differential Diagnosis (chest pain, altered mental status, abdominal pain women, abdominal pain men, vaginal bleeding, musculoskeletal, weakness, fever, dyspnea, syncope, headache, dizziness, GI bleed, back pain, seizure, CVA, palpatations, mental health)? @ -Differential Chest Pain: Stable Angina, Unstable Angina, STEMI, NSTEMI Aortic Dissection, Pneumothorax, Musculoskeletal, Esophageal Spasm GERD, Cholecystitis, Pancreatitis, Zoster, this is not meant to be an all-inclusive list. EKG interpreted by me (3pts min.). @ -See above X-rays interpreted by me (1pt min.). @ -Chest x-ray is nonacute CT interpreted by me (1pt min.). @ -None done U/S interpreted by me (1pt. min.). @ -None done What testing was considered but not performed or refused? (CT, X-rays, U/S, labs)? Why? @ -None What meds were considered but not given or refused? Why? @ -None Was smoking cessation discussed for >3mins.? @ -No Were there social determinants of health that impacted care today? How? (Homelessness, low income, unemployed, alcoholism, drug addiction, trans portation, low edu. Level, literacy, decrease access to med. care, [facility], rehab)? @ -No Was there de-escalation of care discussed even if they declined (Discuss DNR or withdrawal of care, Hospice)? DNR status @ -No What co-morbidities impacted this encounter? (DM, HTN, Smoking, COPD, CAD, Cancer, CVA, ARF, Chemo, Hep., AIDS, mental health diagnosis, sleep apnea, morbid obesity)? @ -Family history of cardiac disease Was patient admitted / discharged? Hospital course, mention meds given and route, prescriptions, significant lab abnormalities, going to OR and other pertinent info. @ -58-year-old female presents to the emergency department for atypical chest pain with typical features. Vital signs upon arrival are within acceptable limits. Patient has no history of cardiac disease. There is some alleged family history of ACS. Patient's symptoms are described as atypical and sharp. Nonetheless laboratory evaluation obtained. Labs are within acceptable limits. D-dimer is negative. Show troponins are negative. Patient reevaluated 3:24 PM states that she has no pain. Disposition options were discussed with patient. She was offered observation admission. She would prefer to be discharged to follow-up with her primary care doctor. Patient given strict return precautions. Advised that she would benefit from outpatient stress test. Did you discuss the management of the patient with other professionals (professionals i.e. , PA, [facility], lab, RT, psych nurse, social media strategist, men's garment fitter, teacher, mortgage loan officer originator, egg caser)? Give summary @ -No Was critical care preformed (if so, how long)? @ -No Undiagnosed new problem with uncertain prognosis? @ -No Drug Therapy requiring intensive monitoring for toxicity (Heparin, Nitro, Insulin, Cardizem)? @ -No Were any procedures done? @ -No Diagnosis/symptom? Acute, or Chronic, or Acute on Chronic? Uncomplicated (without systemic symptoms) or Complicated (systemic symptoms)? @ -Atypical chest pain typical features Side effects of treatment? @ -No Exacerbation, Progression, or Severe Exacerbation? @ -No Poses a threat to life or bodily function? How? (Chest pain, [place], [place], pneumonia, PE, COPD, DKA, ARF, appy, cholecystitis, CVA, Diverticulitis, Homicidal, Suicidal, threat to staff... and all critical care pts) @ -No (Favian Lozada) Disposition <Denny Gerber - Last Filed: 06/27/24 12:37> Is patient prescribed a controlled substance at d/c from ED?: No Time of Disposition: 15:25 <Favian Lozada - Last Filed: 06/27/24 15:25> Clinical Impression: Chest pain Disposition: HOME SELF-CARE Condition: Fair Instructions (If sedation given, give patient instructions): Chest Pain (ED) Referrals: None,Stated [Primary Care Provider] - 1-2 days
[2024-06-27 13:33] LABS: INR 0.9 (<1.2); Partial Thromboplastin Time 24.5 sec (22.0-30.0)
[2024-06-27] MEDS ORDERED: ASPIRIN 81 MG PO STA (15:19)
[2024-06-27 15:38] VITALS: BP 200/126; PULSE 49; RESP 16
== END 2024-06-27 15:38 | disposition home or self-care (01) ==
LOC: EC 10:27
DX: R07.9 Chest pain, unspecified
CPT/HCPCS: 36415; 71046; 80053; 83735; 84484; 85025; 85379; 85610; 85730; 93005; 99285